=== PATIENT | female | born 1985 | race African-American/Black ===

== ENCOUNTER 2020-05-29 12:20 | Emergency (ER) | payer MEDICAID, SELFPAY ==
[2020-05-29 12:27] VITALS: BP 148/88; PULSE 94; RESP 18; TEMP 36.6; O2SAT 100
[2020-05-29 14:09] LABS: Add Urine Microscopic? YES; Appearance Urine Cloudy (Clear); Bacteria Urine Trace /hpf; Bilirubin Urine Negative (Negative); Blood Urine 2+ (Negative); Color Urine Yellow (Yellow); Glucose Urine UA Negative (Negative); Ketones Urine Negative (Negative); Leukocyte Esterase Ur 2+ LEU/UL (Negative); Mucus Urine Few /lpf; Nitrate Urine Negative (Negative); Protein Urine 2+ mg/dL (Negative); RBC Urine 21-50 /hpf (0-2); Specific Grav Ur 1.021 (1.001-1.035); Squamous Epithelial Cell Urine Many /hpf (Few); WBC Clumps Urine Present /HPF; WBC Urine >75 /hpf
--- NOTE | 2020-05-29 15:19 | ED.FEMALEGU ---
HPI - Female Genitourinary General Chief complaint: CLINICAL TECHNOLOGIST <Isaura Mccain PA-C - Last Filed: 05/29/20 16:22> Stated complaint: female issues <Isaura Mccain PA-C - Last Filed: 05/29/20 16:22> Time Seen by Provider: 05/29/20 13:29 <Isaura Mccain PA-C - Last Filed: 05/29/20 16:22> Source: patient <Isaura Mccain PA-C - Last Filed: 05/29/20 16:22> Mode of arrival: ambulatory <Isaura Mccain PA-C - Last Filed: 05/29/20 16:22> Limitations: no limitations <Isaura Mccain PA-C - Last Filed: 05/29/20 16:22> History of Present Illness HPI Narrative: This is a 34 year old female that presents to the ER for dysuria x 1 week. Reports frequency. Also reports itching and irritation. Reports abnormal discharge. Does report possible concern for STDs. Denies fever, lesions, abdominal pain, flank pain, vomiting, or hematuria. <Isaura Mccain PA-C - Last Filed: 05/29/20 16:22> Related Data Allergies/Adverse reactions: Allergies Allergy/AdvReac Type Severity Reaction Status Date / Time No Known Allergies Allergy Verified 05/29/20 13:38 <Isaura Mccain PA-C - Last Filed: 05/29/20 16:22> Review of Systems Review of Systems: Narrative: CONSTITUTIONAL: Denies fever GASTROINTESTINAL: Denies abdominal pain, nausea, vomiting GENITOURINARY: Reports dysuria. Denies hematuria. SKIN: Denies rash <Isaura Mccain PA-C - Last Filed: 05/29/20 16:22> All systems reviewed & are unremarkable except as noted in HPI and below <Isaura Mccain PA-C - Last Filed: 05/29/20 16:22> PMFSH Past Medical History Medical History: Medical History (Updated 05/29/20 @ 16:13 by Isaura Mccain PA-C) No active medical problems <Isaura Mccain PA-C - Last Filed: 05/29/20 16:22> Social History Social History: Social History (Updated 05/29/20 @ 16:07 by Isaura Mccain PA-C) Substance use: never Gender identity (if verbalized by the patient): Female <Isaura Mccain PA-C - Last Filed: 05/29/20 16:22> Exam Narrative: Exam Narrative: GENERAL: Well-appearing, well-nourished, and in no acute distress. HEAD: Normocephalic, atraumatic. EYES: EOMI. CHEST: Clear to auscultation. No respiratory distress. No wheezes rales or rhonchi HEART: Regular rate and rhythm. No murmur heard. Normal peripheral pulses. ABDOMEN: Soft, nontender, nondistended, normal active bowel sounds. EXTREMITIES: Normal range of motion. No edema. SKIN: Warm, dry, no rash. NEURO: No focal deficits. Alert and oriented x3. PSYCH: Normal mood and affect PELVIC: Normal external genitalia. Moderate amount of white cervical discharge present. No CMT <Isaura Mccain PA-C - Last Filed: 05/29/20 16:22> Course Vital Signs Vital signs: Vital Signs Temperature 36.6 C 05/29/20 12:27 Pulse Rate 94 05/29/20 12:27 Respiratory Rate 18 05/29/20 12:27 Blood Pressure 148/88 H 05/29/20 12:27 Pulse Oximetry 100 05/29/20 12:27 Temperature 36.6 C 05/29/20 12:27 Pulse Rate 87 05/29/20 15:46 Respiratory Rate 18 05/29/20 15:46 Blood Pressure 132/92 H 05/29/20 15:46 Pulse Oximetry 100 05/29/20 15:46 <Isaura Mccain PA-C - Last Filed: 05/29/20 16:22> Vital Signs Temperature 36.6 C 05/29/20 12:27 Pulse Rate 94 05/29/20 12:27 Respiratory Rate 18 05/29/20 12:27 Blood Pressure 148/88 H 05/29/20 12:27 Pulse Oximetry 100 05/29/20 12:27 Temperature 36.6 C 05/29/20 12:27 Pulse Rate 87 05/29/20 15:46 Respiratory Rate 18 05/29/20 15:46 Blood Pressure 132/92 H 05/29/20 15:46 Pulse Oximetry 100 05/29/20 15:46 <Raya Gillis MD - Last Filed: 05/29/20 17:21> MDM - Female Genitourinary MDM Narrative Medical decision making narrative: Patient presents to the ER for dysuria x 1 week. Also reports frequency and abnormal discharge. Reports concern for STDs. UA with WBCs, RBCs and leuk esterase. Trichomonas negative. Chlamydia and gonorrhea
[2020-05-29] MEDS: AZITHROMYCIN 250 MG TABLET 1000 MG PO (15:45)
[2020-05-29] MEDS: cefTRIAXone 250 MG VIAL IM (15:45)
[2020-05-29] MEDS: FLUCONAZOLE 150 MG TABLET PO (15:45)
[2020-05-29 15:46] VITALS: BP 132/92; PULSE 87; RESP 18; O2SAT 100
== END 2020-05-29 16:38 | disposition home or self-care (01) ==
PROVIDERS: Physician Assistant; Emergency Provider Emergency Medicine
DX: N30.00 Acute cystitis without hematuria (principal)
CPT/HCPCS: 81001; 81025; 87070; 87077; 87086; 87088; 87186; 87491; 87591; 87808; 96372; 99284; A9270; J0696